=== PATIENT | male | born 1965 | race African-American/Black ===

== ENCOUNTER 2019-04-04 11:36 | Emergency (ER) | payer OTHER ==
[~2019-04-04] VITALS: Ht 167.6 cm; Wt 89.4 kg
[~2019-04-04 11:36] MED LIST: IBUPROFEN 800800 MG PO; NOHOMEMEDICATIONS; NORCO 5-325 TA1 EACH PO; NORFLEX100 MG PO
[2019-04-04] MEDS ORDERED: SINGULAIR 10 MG10 MG PO (12:00)
[2019-04-04] MEDS ORDERED: NORCO 7.5-3251 EACH PO (13:52)
[2019-04-04 14:02] VITALS: BP 133/86
== END 2019-04-04 14:02 | disposition home or self-care (01) ==
LOC: ER 11:36
DX: S09.8XXA Other specified injuries of head, initial encounter (principal); M25.512 Pain in left shoulder; M54.2 Cervicalgia; J45.909 Unspecified asthma, uncomplicated; V89.2XXA Person injured in unspecified motor-vehicle accident, traffic, initial encounter; Y92.89 Other specified places as the place of occurrence of the external cause; Y93.89 Activity, other specified; Y99.8 Other external cause status

== ENCOUNTER 2019-04-29 11:11 | Emergency (ER) | payer OTHER ==
[~2019-04-29] VITALS: Ht 167.6 cm; Wt 90.7 kg
[~2019-04-29 11:11] MED LIST changes: +NORCO 7.5-3251 EACH PO; +SINGULAIR 10 MG10 MG PO
[2019-04-29] MEDS ORDERED: BREO ELLIPTA 21 EACH INH (11:30)
[2019-04-29] MEDS ORDERED: IBUPROFEN 800800 M1 PO (13:07)
[2019-04-29] MEDS ORDERED: CLARITIN-D 121 EAC1 PO (13:07)
[2019-04-29 13:25] VITALS: BP 120/90
== END 2019-04-29 13:26 | disposition home or self-care (01) ==
LOC: ER 11:11
DX: J11.1 Influenza due to unidentified influenza virus with other respiratory manifestations (principal); J45.901 Unspecified asthma with (acute) exacerbation; Z79.899 Other long term (current) drug therapy

== ENCOUNTER 2019-06-16 08:27 | Emergency (ER) | payer OTHER ==
[~2019-06-16] VITALS: Ht 167.6 cm; Wt 91.2 kg
[~2019-06-16 08:27] MED LIST changes: +BREO ELLIPTA 21 EACH INH; +CLARITIN-D 121 EAC1 PO; +IBUPROFEN 800800 M1 PO
[2019-06-16] MEDS ORDERED: PROAIR HFA8.5 GM INH (08:41)
[2019-06-16] MEDS ORDERED: MOBIC15 MG PO (09:36)
[2019-06-16 09:39] VITALS: BP 132/86
== END 2019-06-16 09:43 | disposition home or self-care (01) ==
LOC: ER 08:27
DX: S46.911A Strain of unspecified muscle, fascia and tendon at shoulder and upper arm level, right arm, initial encounter (principal); J45.909 Unspecified asthma, uncomplicated; Z79.899 Other long term (current) drug therapy; V89.2XXA Person injured in unspecified motor-vehicle accident, traffic, initial encounter; Y93.89 Activity, other specified; Y92.89 Other specified places as the place of occurrence of the external cause; Y99.8 Other external cause status

== ENCOUNTER 2019-09-30 15:16 | Emergency (ER) | payer OTHER ==
[~2019-09-30] VITALS: Ht 167.6 cm; Wt 90.3 kg
[~2019-09-30 15:16] MED LIST changes: +MOBIC15 MG PO; +PROAIR HFA8.5 GM INH
[2019-09-30 15:46] VITALS: BP 126/80
== END 2019-09-30 17:04 | disposition home or self-care (01) ==
LOC: ER 15:16
DX: R51 Headache (principal); R09.81 Nasal congestion; Z20.828 Contact with and (suspected) exposure to other viral communicable diseases; J45.909 Unspecified asthma, uncomplicated; Z79.899 Other long term (current) drug therapy

== ENCOUNTER 2020-05-05 21:20 | Emergency (ER) | payer OTHER ==
[~2020-05-05] VITALS: Ht 167.6 cm; Wt 93.0 kg
[2020-05-05 21:44] LABS: URINE BILIRUBIN NEGATIVE (Negative); URINE BLOOD NEGATIVE (Negative); URINE CLARITY CLEAR; URINE COLOR YELLOW; URINE GLUCOSE-RANDOM* NEGATIVE (Negative); URINE KETONES NEGATIVE (Negative); URINE LEUKOCYTES-REFLEX NEGATIVE (Negative); URINE NITRITE-REFLEX NEGATIVE (Negative); URINE PROTEIN (DIPSTICK) NEGATIVE (Negative); URINE UROBILINOGEN 0.2 E.U./dl (0.2-1.0)
[2020-05-05 22:10] LABS: ABSOLUTE NEUTROPHILS 1.7 thou/uL (1.4-8.2); BASOPHILS 1.3 % (0.0-2.0); EOSINOPHILS 3.5 % (0.0-3.0); HEMATOCRIT 40.4 % (42.0-52.0); HEMOGLOBIN 13.4 gm/dL (14.0-18.0); MCH 28.6 pg (26.0-34.0); MCHC 33.1 g/dL (28.0-37.0); MCV 86.4 fL (80.0-100.0); MONOCYTES 11.7 % (1.0-8.0); PLATELET COUNT 219 thou/uL (150-400); POLYS 45.5 % (36.0-66.0); RBC 4.67 mil/uL (4.50-6.00); RDW 14.9 % (10.5-14.5); WBC 3.8 thou/uL (4.0-11.0)
[2020-05-05 22:12] LABS: ANION GAP 10 mmol/L (7-16); BUN 11 mg/dL (7-18); CALCIUM 9.2 mg/dL (8.5-10.1); CHLORIDE 102 mmol/L (98-107); CO2 28 mmol/L (21-32); CREATININE 1.1 mg/dL (0.7-1.3); GLUCOSE 103 mg/dL (74-106); POTASSIUM 3.6 mmol/L (3.5-5.1); SODIUM 140 mmol/L (136-145)
[2020-05-05 22:19] LABS: ALBUMIN 4.1 g/dL (3.4-5.0); AMYLASE 61 U/L (25-115); DIRECT BILIRUBIN < 0.1 mg/dL (<0.1-0.2); LIPASE 121 U/L (73-393); SGOT 29 U/L (15-37); SGPT 50 U/L (16-63); TOTAL BILIRUBIN 0.3 mg/dL (0.2-1.0); TOTAL PROTEIN 7.9 g/dL (6.4-8.2)
[2020-05-06 00:27] VITALS: BP 113/61
[2020-05-06] MEDS ORDERED: HYDROCODON-ACE1 EAC5 PO (00:34)
[2020-05-06] MEDS ORDERED: ZOFRAN ODT4 MG PO (00:34)
[2020-05-06] MEDS ORDERED: NORCO 10-325 T1 EACH PO (13:44)
== END 2020-05-06 01:19 | disposition home or self-care (01) ==
LOC: ER 21:20
PROVIDERS: Emergency Medicine
DX: R10.32 Left lower quadrant pain (principal); J45.909 Unspecified asthma, uncomplicated; Z79.899 Other long term (current) drug therapy

== ENCOUNTER 2020-08-25 22:23 | Emergency (ER) | payer OTHER ==
[~2020-08-25] VITALS: Ht 167.6 cm; Wt 90.7 kg
[~2020-08-25 22:23] MED LIST changes: +HYDROCODON-ACE1 EAC5 PO; +NORCO 10-325 T1 EACH PO; +ZOFRAN ODT4 MG PO
[2020-08-25] MEDS ORDERED: TADALAFIL5 M1 PO (22:35)
[2020-08-25] MEDS ORDERED: PERCOCET 5-3251 EACH PO (22:35)
[2020-08-25] MEDS ORDERED: MELOXICAM15 MG PO (22:36)
[2020-08-25 23:05] LABS: ABSOLUTE NEUTROPHILS 6.4 thou/uL (1.4-8.2); BASOPHILS 0.3 % (0.0-2.0); EOSINOPHILS 0.1 % (0.0-3.0); HEMATOCRIT 39.4 % (42.0-52.0); HEMOGLOBIN 12.7 gm/dL (14.0-18.0); LYMPHOCYTES 7.8 % (24.0-44.0); MCHC 32.2 g/dL (28.0-37.0); MCV 87.1 fL (80.0-100.0); MONOCYTES 4.9 % (1.0-8.0); PLATELET COUNT 210 thou/uL (150-400); POLYS 86.9 % (36.0-66.0); RBC 4.52 mil/uL (4.50-6.00); RDW 15.2 % (10.5-14.5); WBC 7.3 thou/uL (4.0-11.0)
[2020-08-25 23:15] LABS: CALCIUM 8.4 mg/dL (8.5-10.1); CREATININE 1.1 mg/dL (0.7-1.3); POTASSIUM 4.5 mmol/L (3.5-5.1)
[2020-08-25 23:20] LABS: ALBUMIN 3.8 g/dL (3.4-5.0); TOTAL BILIRUBIN 0.3 mg/dL (0.2-1.0); TOTAL PROTEIN 7.6 g/dL (6.4-8.2)
[2020-08-26] MEDS ORDERED: REGLAN 10 MG TA10 MG PO (00:23)
[2020-08-26 01:50] VITALS: BP 125/81
--- NOTE | 2020-08-26 11:03 | EKG ---
[place] [address] [facility] [address] [place] [address] ELECTROCARDIOGRAM REPORT Name: DAVID DAWSON Room #: [facility] Pardeep#: [id number] Admission: 08/25/20 Attend Phys: Discharge: 08/26/20 Date of : 67 Report #: [id number] [facility] ED Test Date: 2020-08-25 Test Time: 23:14:36 Pat Name: DAVID DAWSON Department: Room: Gender: M [employer] [address] Vendor: : 1965 Requested By: Reagan Espana Order Number: [id number] MD: Bright Rivera Measurements Intervals [place] Rate: 67 P: 3 PA: 142 QRS: 20 QRSD: 92 T: 0 QT: 442 QTc: 464 Interpretive Statements Sinus rhythm Borderline T abnormalities, inferior leads No previous ECG available for comparison Electronically Signed On 08-26-2020 11:03:22 CDT by Bright Rivera [email or web address] <ELECTRONICALLY SIGNED> By: Bright Rivera MD 08/26/20 1103 2314 2314 Bright Rivera MD /EPI
== END 2020-08-26 01:51 | disposition home or self-care (01) ==
LOC: ER 22:23
PROVIDERS: Emergency Medicine
DX: R11.2 Nausea with vomiting, unspecified (principal); R42 Dizziness and giddiness; J45.909 Unspecified asthma, uncomplicated; Z98.890 Other specified postprocedural states